=== PATIENT | male | born 1955 | race Two or more races ===

== ENCOUNTER 2017-09-18 13:38 | Emergency (ER) | payer MEDICAID ==
[~2017-09-18] VITALS: Ht 152.4 cm; Wt 67.1 kg
[2017-09-18 13:45] VITALS: Ht 152.4 cm; Wt 67.1 kg
[2017-09-18 14:21] LABS: microscopic required? NO
[2017-09-18 14:27] LABS: UA SPECIFIC GRAVITY 1.025 (1.005-1.035); urine erythrocyte NEGATIVE (NEGATIVE)
[2017-09-18 14:34] LABS: CALCIUM 8.4 mg/dL (8.5-10.1); CHLORIDE SERUM 105 mmol/L (98-107); CREATININE SERUM 0.9 mg/dL (0.7-1.3); GFR1 > 60 mL/min; GLUCOSE SERUM 120 mg/dL (74-106); POTASSIUM SERUM 3.5 mmol/L (3.5-5.1); SODIUM SERUM 141 mmol/L (136-145)
[2017-09-18 14:39] LABS: ALBUMIN 3.3 g/dL (3.4-5.0); ALKALINE PHOSPHATASE 90 U/L (46-116); ALT/SGPT 28 U/L (16-63); AST/SGOT 26 U/L (15-37); BILIRUBIN TOTAL 0.29 mg/dL (0.20-1.00); LIPASE 197 IU/L (73-393); TOTAL PROTEIN, SERUM 7.3 g/dL (6.4-8.2)
[2017-09-18 14:41] LABS: BASOPHIL % 0.5 % (0-2); PLATELET COUNT 214 x10^3mcL (130-400); RED CELL DISTRIBUTION WIDTH 12.8 % (11.5-14.5)
[2017-09-18 15:53] VITALS: BP 128/83
== END 2017-09-18 15:53 | disposition home or self-care (01) ==
LOC: ED 13:38
PROVIDERS: Emergency Medicine
DX: R10.12 Left upper quadrant pain (principal); R14.0 Abdominal distension (gaseous); E78.00 Pure hypercholesterolemia, unspecified
CPT/HCPCS: 83880; J7030

== ENCOUNTER 2018-11-14 12:54 | Emergency (ER) | payer SELFPAY ==
[~2018-11-14] VITALS: Ht 152.4 cm; Wt 68.0 kg
[2018-11-14 13:03] VITALS: Ht 152.4 cm; Wt 68.0 kg
[2018-11-14 15:57] VITALS: BP 140/86
== END 2018-11-14 15:57 | disposition home or self-care (01) ==
LOC: ED 12:54
DX: K62.3 Rectal prolapse (principal); K59.00 Constipation, unspecified